=== PATIENT | female | born 1960 | race Caucasian/White ===

== ENCOUNTER 2024-09-02 15:14 | Outpatient (CLI) | payer MEDICAID ==
[~2024-09-02 15:14] MED LIST: ALBU18HF2 IH; ATOR20TA66 PO; DICL50TA6 PO; LORA10TA7 PO; RISP3TAB77 PO; SPIIN IH; TRAZ150T78 PO; VENL150T3 PO
[2024-09-02 16:17] VITALS: PULSE 81; RESP 16; O2SAT 98
--- NOTE | 2024-09-03 15:42 | PROCEDURE NOTE - Respiratory ---
Procedure Note-Respiratory Providers to CC Copies To 1: PAM KIDD Procedure Name: This is a complete pulmonary function study dated September 02, 2024. Spirometry measurements: Both the forced vital capacity and the FEV1 are in the lower range of normal. The FEV1 ratio is normal. The flow rate measurements are normal with the exception of decrease in the terminal flow rates FEF 75%. Bronchodilator was not administered as part of the study. Lung volume measurements: The total lung capacity and the functional residual capacity are both in the normal range. There is mild elevation of the residual volume. Lung diffusion measurement: The DLCO measurement is normal. Airway resistance measurement: The airway resistance is not elevated. Overall conclusion: This study shows mild abnormality. There is evidence for very mild obstructive ventilatory defect. This is consistent with the patient's diagnosis of smoking-related COPD. Given this patient's prolonged exposure to tobacco smoke, it is surprising that the patient's lung function is this close to normal. It is strongly recommended that the patient abstain from cigarette smoking in order to preserve the remaining pulmonary function. Continued use of albuterol HFA is recommended. We have no previous studies for comparison. MARYAN MAURICIO MD September 03, 2024 15:42
== END 2024-09-02 23:59 | disposition home or self-care (01) ==
LOC: RT 15:14
PROVIDERS: ATTEND Physician Assistant
DX: J44.9 Chronic obstructive pulmonary disease, unspecified (principal); J98.8 Other specified respiratory disorders
CPT/HCPCS: 94010; 94727; 94729; 94760

== ENCOUNTER 2024-12-19 09:48 | Emergency (ER) | payer MEDICAID ==
[~2024-12-19] VITALS: Ht 170.2 cm; Wt 79.3 kg
[2024-12-19 09:52] VITALS: BP 149/72; PULSE 111; TEMP 98.5; O2SAT 99
--- NOTE | 2024-12-19 10:18 | Physician Documentation ---
History of Present Illness ~ Chief Complaint: Back Pain Stated Complaint: BACK PAIN Time Seen by MD: 10:01 OK to notify your PCP?: Yes Primary Medical Doctor: No PMD Source: patient Mode of Arrival: POV Exam Limitations: no limitations HPI 64-year-old female presents with low back pain for 3 days which is radiating down both legs after she has been sleeping on the ground. She is currently staying at the [facility] and has been having trouble getting up off of benches and cots. Not taken any medication prior to arrival for her pain. She denies any saddle anesthesia, or loss of bowel or bladder. She is ambulatory. Medication Reconciliation Allergies: Coded Allergies: Penicillins (Verified Allergy, Unknown, 12/19/24) Scheduled Albuterol Sulfate (Ventolin Hfa), 2 PUFFS IH DAILY, (Reported) Atorvastatin Calcium (Atorvastatin Calcium), 20 MG PO DAILY, (Reported) Diclofenac Potassium (Diclofenac Potassium), 1 TABLET PO BID, (Reported) Loratadine (Loratadine), 10 MG PO DAILY, (Reported) Risperidone (Risperidone), 1 TABLET PO HS, (Reported) Tiotropium [place] (SPIRIVA inhaler), 1 CAP IH DAILY, (Reported) Trazodone Hcl (Trazodone Hcl), 500 MG PO HSP, (Reported) Venlafaxine HCl (Venlafaxine HCl ER), 1 TABLET PO DAILY, (Reported) Past Medical History Past Medical History: COPD Past Surgical History: Alcohol Use: None Drug Use: none Lives with: Alone Lives In: Homeless Occupation: unemployed Review of Systems All Other Systems at this time: Reviewed and Negative Physical Exam Physical Exam Vital Signs: RN Vital Signs have been reviewed: Yes, Temperature: 98.5, Source: Oral, Heart Rate: 111, Respiratory Rate: 20, BP: 149/72, Pulse Oximetry: 99, Weight: 79.300 Oxygen Flow Rate: 0 Pulse Oximetry Reflects: adequate oxygenation Physical Exam General: Alert, no apparent distress. HEENT: PERRL, EOMI, no injection, moist mucous membranes. Neck: Full range of motion. Respiratory: Lungs clear, no respiratory distress. Chest: No accessory muscle use. Cardiovascular: Regular rate and rhythm, no murmurs. Gastrointestinal: Soft, nontender, nondistended. Bowels sounds present. Extremities: Normal range of motion, no deformity. Back: Tenderness to palpation along lumbar sacral muscles, no midline tenderness. Neurologic: Oriented x4. Psychiatric: Normal mood and affect. Skin: Normal color, warm and dry. No edema, no ecchymosis. Progress Results/Orders Reviewed/noted all lab results: Yes Results/Orders Completed Orders - AILYN STOUT Ketorolac Trometh 15mg/Ml Vial (Toradol (12/19/24 10:15) Lidocaine 5% Patch (Lidoderm 5% Patch) (12/19/24 10:15) Cyclobenzaprine Tablet (Flexeril Tablet) (12/19/24 10:15) Vital Signs 12/19/24 09:52 Temp 98.5 Pulse 111 Resp 20 B/P (MAP) 149/72 Pulse Ox 99 O2 Flow Rate 0 Medical Decision Making Additional info obtained from: old records Findings She has presented with low back pain along the muscles but also having pain traveling down bilateral legs. History of sciatica She is ambulatory. Her physical exam reveals tenderness along the muscles with palpation but no midline tenderness. She states that normally they give her a steroid shot as well as a steroid pack and that seems to take care of the pain however I suspect this to be more musculoskeletal in nature due to her sleeping position and my physical exam. I have prescribed lidocaine patch, Toradol shot and Flexeril for the pain to be given in the department and I have sent a prescription to her pharmacy for more lidocaine patches, naproxen and Flexeril.. Differential Dx:Considerations: Include: AAA, Aortic dissection, DJD, Fracture, Pyelonephritis, Urinary obstruction, Urolithiasis Departure Disposition: 01 HOME / SELF CARE / HOMELESS Impression: Primary Impression: Sciatica Additional Impression: Lumbosacral strain Condition: Stable Discharge Instructions: Sciatica, Lumbosacral Strain Additional Instructions: [facility] week and return back here for any new or worsening symptoms. You can continue to take Tylenol and naproxen for pain relief. Referrals: NO PRIMARY CARE PROVIDER (PCP) Prescriptions Lidocaine (Lidocaine) 5 % Adh..patch 1 PATCH TOP DAILY for 30 Days, #30 PATCH 0 Refills Prov: AILYN STOUT 12/19/24 Naproxen (Naproxen) 500 Mg Tablet 1 TAB PO Q12H, #20 TAB Prov: AILYN STOUT 12/19/24 Cyclobenzaprine* (Cyclobenzaprine*) 10 Mg Tablet 1 TAB PO Q8H for muscle spasms for 10 Days, #30 TAB 0 Refills Prov: AILYN STOUT 12/19/24 Education Educated: Patient Educated regarding: diagnosis, treatment, prognosis, need for follow up Additional Comment Medical Screen Exam This patient recieved a medical screening examination. After reviewing the individual's medical complaints with presenting symptoms and performing an appropriate physical examination, it was determined that no immediate life-threatening emergency medical condition is present. This individual is also not a women having contractions. Signature Scribe Signature: . Attestation: Scribed for Ailyn Stout by Ailyn Quintana NP . 12/19/24 10:24 Parts of this note were created using [employer] voice recognition software program. While efforts were made to correct any mistakes made by this voice recognition software program, nonsensical phrases may remain in this note. In addition, there may be errors and syntax, grammar, content and spelling. AILYN STOUT Dec 19, 2024 10:18
[2024-12-19 10:26] VITALS: RESP 15
[2024-12-19] MEDS: ketorolac trometh 15mg/ml vial 15 MG/ML ML IM ONE (10:26)
[2024-12-19] MEDS ORDERED: LIDO700A47 TOP (10:27)
[2024-12-19] MEDS ORDERED: NAPR-56 PO (10:27)
[2024-12-19] MEDS ORDERED: CYCL-1 PO (10:27)
== END 2024-12-19 10:37 | disposition home or self-care (01) ==
LOC: ER 09:49
DX: S39.012A Strain of muscle, fascia and tendon of lower back, initial encounter (principal); J44.9 Chronic obstructive pulmonary disease, unspecified; Z88.0 Allergy status to penicillin; Z79.899 Other long term (current) drug therapy; Z56.0 Unemployment, unspecified; Z59.00 Homelessness unspecified; Z60.2 Problems related to living alone; X58.XXXA Exposure to other specified factors, initial encounter; Y93.89 Activity, other specified; Y92.89 Other specified places as the place of occurrence of the external cause; Y99.8 Other external cause status
CPT/HCPCS: 96372; 99283; J1885